=== PATIENT | male | born 1995 | race Caucasian/White ===

== ENCOUNTER 2017-11-19 15:17 | Emergency (ER) | payer OTHER, SELFPAY ==
[2017-11-19] VITALS (10 sets, daily range): BP systolic 126–157; BP diastolic 70–92; PULSE 64–99; RESP 12–20; TEMP 37.2; O2SAT 94–100; BMI 25.9
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
--- NOTE | 2017-11-19 15:36 | EKG12_ITS ---
Test Reason : AA Blood Pressure : / mmHG Vent. Rate : 074 BPM Atrial Rate : 074 BPM P-R Int : 116 ms QRS Dur : 092 ms QT Int : 374 ms P-R-T Axes : 043 066 065 degrees QTc Int : 415 ms Normal sinus rhythm Normal ECG Confirmed by PACO VALLES, EVAN ([id number]), editorial writer LUCIA BHAGAT ([id number]) on 11/23/2017 1:11:04 PM Referred By: ESTELLE Confirmed By:EVAN ANTONIO MD
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
[2017-11-19] MEDS: fentaNYL 100 MCG/2 ML Ampul 50 MCG IV ×2 (15:46→19:19)
[2017-11-19] MEDS: Ondansetron 4 MG/2 ML Vial IV (15:46)
[2017-11-19 16:06] LABS: Absolute Lymphocyte Count 1.46 X10^3/ul (0.83-4.51); Absolute Neutrophil Count 6.1 X10^3/uL (2.0-7.7); Basophil# 0.02 X10^3/uL; Basophil% 0.2 % (0-1); Eosinophil# 0.16 X10^3/uL; Eosinophils% 1.9 % (0-5); Hematocrit 45.5 % (40-54); Hemoglobin 14.5 g/dl (13.0-16.5); Lymphocyte # 1.46 X10^3/ul (4.0); Lymphocyte % 17.1 % (19-41); Mean Corp Hgb Conc 31.9 g/gl (32-36); Mean Corpuscular Hgb 29.2 pg (27.0-32.0); Mean Corpuscular Volume 91.5 fL (80-94); Mean Platelet Vol. 8.9 fl (6.2-12.0); Monocyte# 0.82 X10^3/uL; Monocyte% 9.6 % (0-10); Neutrophil # 6.07 X10^3/uL (2.7-7.7); Platelet Count 320 K/mm3 (150-450); RBC Distribution Width CV 13.6 % (11.6-14.6); RBC Distribution Width SD 44.7 fl (35.1-43.9); Red Blood Count 4.97 M/mm3 (4.6-6.2); White Blood Count 8.6 K/mm3 (4.4-11.0)
[2017-11-19 16:08] LABS: Prothrombin Time (Protime)PT. 12.6 SECONDS (11.7-14.9)
[2017-11-19 16:12] LABS: POSITIVE COUNT NO; POSITIVE DIFFERENTIAL NO; POSITIVE MORPHOLOGY NO
[2017-11-19 16:23] LABS: Alcohol, Blood (Medical)-Serum < 3.0 mg/dL
[2017-11-19 16:30] LABS: Anion Gap 8 (5-15); BUN 11 mg/dL (7-18); BUN/Creat Ratio 10.9 RATIO (10-20); Calcium,Total 9.1 mg/dL (8.5-10.1); Chloride 104 mmol/L (98-107); Creatinine, Serum 1.01 mg/dL (0.70-1.30); EST Glomerular Filtration Rate 99 mL/min (>60); Est Glom Filt Rate - Afr Amer 120 mL/min (>60); Estimated Creatinine Clearance 128.05 ml/min; Glucose 107 mg/dL (74-106); Potassium 3.4 mmol/L (3.5-5.1); Sodium Level 140 mmol/L (136-145)
--- NOTE | 2017-11-19 17:19 | ED.RN ---
rn called pt michael odell per pt request. she states she is in route to the hospital and will be here soon.
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
[2017-11-19 21:06] LABS: Amphetamine Urine VISTA POSITIVE (<1000 ng/mL); Barbiturate Urine VISTA NEGATIVE (< 200 ng/mL); Benzodiazepine Urine VISTA NEGATIVE (< 200 ng/mL); Cocaine Urine VISTA NEGATIVE (< 300 ng/mL); Ecstacy Urine VISTA NEGATIVE (< 500 ng/mL); Methadone Urine VISTA NEGATIVE (< 300 ng/mL); PCP Urine VISTA NEGATIVE (< 25 ng/mL); THC Urine VISTA POSITIVE (< 50 ng/mL); Vista UDS pH Range 6
--- NOTE | 2017-11-19 23:01 | ED.RN ---
[facility] called for transfer. left message at this time for call back
[2017-11-20 00:31] VITALS: BP 122/78; PULSE 100; PULSE 105; RESP 17; RESP 19; TEMP 37.1; O2SAT 100; O2SAT 99
[2017-11-20 01:02] VITALS: BP 137/80; PULSE 99; RESP 18; O2SAT 97
--- NOTE | 2017-11-20 01:18 | ED.RN ---
pt c-collar reapplied per dr. barrett verbal order. pt now alert and oriented and up and moving around without difficulty. pt ambulatory with no assistance from staff. pt awaiting transport to [facility].
[2017-11-20 01:58] VITALS: BP 118/68; PULSE 78; RESP 15; O2SAT 97
== END 2017-11-20 01:58 | disposition short-term general hospital (02) ==
PROVIDERS: Emergency Provider Emergency Medicine; Family Provider Pediatrics; PCP Pediatrics
DX: S30.1XXA Contusion of abdominal wall, initial encounter (principal); S09.90XA Unspecified injury of head, initial encounter; S01.81XA Laceration without foreign body of other part of head, initial encounter; S20.319A Abrasion of unspecified front wall of thorax, initial encounter; Z72.0 Tobacco use; V57.0XXA Driver of pick-up truck or van injured in collision with fixed or stationary object in nontraffic accident, initial encounter; Y93.I9 Activity, other involving external motion; Y92.410 Unspecified street and highway as the place of occurrence of the external cause; Y99.8 Other external cause status
CPT/HCPCS: 12011; 70450; 70486; 71045; 71260; 72125; 74177; 80048; 80307; 80320; 84484; 85025; 85610; 93005; 96374; 96375; 96376; 99285; J7030; Q9967; A4216; G0480; J2405

== ENCOUNTER 2018-04-05 13:05 | Emergency (ER) | payer OTHER, SELFPAY ==
[2018-04-05 13:06] VITALS: BP 128/76; PULSE 74; RESP 16; TEMP 36.9; O2SAT 98; BMI 25.7
--- NOTE | 2018-04-05 13:46 | CT_ITS ---
STUDY: CT ABDOMEN AND PELVIS WITHOUT CONTRAST REASON FOR EXAM: Male, 22 years old. Bilateral flank pain. RADIATION DOSAGE (If Supplied By Facility): CTDIvol = ( 8.70 ) mGy, DLP = ( 456.46 ) mGycm TECHNIQUE: Transaxial images were obtained from the dome of the diaphragm to the symphysis pubis without oral contrast, and without intravenous contrast. Sagittal and coronal images were reconstructed. Individualized dose optimization techniques were used for this CT. COMPARISON: Comparison is made with prior study dated November 19, 2017. FINDINGS: The visualized lung bases are unremarkable. The visualized portions of the heart are within normal limits. Normal liver. Normal gallbladder and extrahepatic biliary system. Normal spleen. Normal pancreas. Normal bilateral adrenal glands. Normal right kidney. Normal left kidney. Normal visualized stomach. Normal small intestine. Normal colon. The appendix is visualized and appears normal. Normal abdominal aorta. Normal inferior vena cava. Normal retroperitoneum. Normal urinary bladder. Normal abdominal wall. Normal osseous structures. CT/Abdomen/Pelvis without Cont IMPRESSION: Normal unenhanced CT of the abdomen and pelvis. Electronically Signed: Dino Huff MD at 14:58 EDT Tel [phone], Service support ,
[2018-04-05] MEDS: Ketorolac 30 MG/ML Syringe IV (14:21)
[2018-04-05] MEDS: 0.9% Normal Saline 1,000 ML 1000 ML IV (14:21)
[2018-04-05] MEDS: Ondansetron 4 MG/2 ML Vial IV (14:21)
[2018-04-05 14:47] LABS: Bacteria 0 SEEN /hpf (None Seen); Mucous, Urine 0 SEEN /hpf (<or=2+); Red Blood Cells-Urine 0 SEEN /hpf (0-5); White Blood Cells 0 SEEN /hpf (0-5)
[2018-04-05 14:50] LABS: Color, Urine Yellow (Yellow); Glucose, Dipstick Normal (Normal); Ketone-Dipstick Negative (Negative); Leukocyte Esterase-Dipstick Negative /ul (Negative); Nitrite-Dipstick Positive (Negative); Occult Blood-Urine Negative /ul (Negative); Protein-Dipstick Negative (Negative); Urine Bilirubin Dipstick Negative (Negative); Urine Clarity Sl. Cloudy (Clear); Urine Urobilinogen 1 mg/dl (Normal)
[2018-04-05 14:52] LABS: Absolute Lymphocyte Count 1.12 X10^3/ul (0.83-4.51); Absolute Neutrophil Count 6.3 X10^3/uL (2.0-7.7); Basophil# 0.02 X10^3/uL; Basophil% 0.3 % (0-1); Eosinophil# 0.08 X10^3/uL; Hematocrit 46.3 % (40-54); Hemoglobin 15.1 g/dl (13.0-16.5); Lymphocyte # 1.12 X10^3/ul (4.0); Lymphocyte % 14.4 % (19-41); Mean Corp Hgb Conc 32.6 g/gl (32-36); Mean Corpuscular Hgb 29.2 pg (27.0-32.0); Mean Corpuscular Volume 89.6 fL (80-94); Mean Platelet Vol. 9.4 fl (6.2-12.0); Monocyte# 0.24 X10^3/uL; Monocyte% 3.1 % (0-10); Neutrophil % 81.2 % (47-70); POSITIVE COUNT NO; POSITIVE DIFFERENTIAL NO; POSITIVE MORPHOLOGY NO; Platelet Count 260 K/mm3 (150-450); RBC Distribution Width CV 13.4 % (11.6-14.6); Red Blood Count 5.17 M/mm3 (4.6-6.2); White Blood Count 7.8 K/mm3 (4.4-11.0)
[2018-04-05 14:59] LABS: Squamous Epithelial Cells - UA 0-5 SEEN /hpf (0-5)
[2018-04-05 15:08] LABS: Anion Gap 7 (5-15); BUN 15 mg/dL (7-18); BUN/Creat Ratio 18.8 RATIO (10-20); Calcium,Total 8.6 mg/dL (8.5-10.1); Chloride 107 mmol/L (98-107); EST Glomerular Filtration Rate 130 mL/min (>60); Est Glom Filt Rate - Afr Amer 157 mL/min (>60); Estimated Creatinine Clearance 160.32 ml/min; Glucose 123 mg/dL (74-106); Sodium Level 141 mmol/L (136-145)
--- NOTE | 2018-04-05 15:22 | ED.DCSUM_ITS ---
- ER Visit Summary Date of Service: 04/05/18 Chief Complaint: Flank pain History of Present Illness: The patient is a 22 M with a couple day history of bilateral flank pain rating around anterior abdomen. He states he has had some mild diarrhea. He had similar symptoms a few weeks ago that improved after drinking water and cranberry juice. He denies dysuria or hematuria. He has had no fever. Physical Examination: Vital signs are unremarkable. Patient's lying supine in the bed. He is in no acute distress. Head neck examination is normal. Heart is regular rate and rhythm. Lung sounds are clear. Abdomen is soft with no focal tenderness on exam. Normal bowel sounds noted. Back examination reveals no reproducible tenderness. No skin rash or lesions are noted. Test Results: CBC and chemistry studies are unremarkable. Urinalysis is positive for nitrites but 0 white cells and [address] the flank is unremarkable. Emergency Department Course and Treatment: Urine will be sent for culture. Patient had IV fluids, Toradol, and Zofran. On repeat evaluation is resting comfortably. Test results were discussed with him. Because he does not have urinary symptoms but does have nitrite positive urine will be sent for the culture but he will not be treated at this time. Patient will be given naproxen for home, encouraged to increase fluids, and will be referred to establish a primary care physician for follow-up. Treatment Plan: [] Disposition: Discharge Impression: Flank pain, uncertain etiology This note was generated with [employer] dictation software. It may contain incorrect words, spelling, and punctuation that were not noted in review of the chart prior to signing ED Disposition - Plan for ED Patient: Chief Complaint: Back Referrals: Care Physician,No Primary [Primary Care Provider] -
--- NOTE | 2018-04-05 15:23 | ED.DEP ---
ED Disposition - Plan for ED Patient: Disposition: Home or Assisted Living Chief Complaint: Back Instructions: ED Flank Pain Uncertain Cause Prescriptions: Naproxen [Naprosyn] 500 mg PO BID PRN #20 tablet Referrals: Yan Delgado MD [STAFF PHYSICIAN] - As Needed
[2018-04-05 15:36] VITALS: BP 124/67; PULSE 59; RESP 15; O2SAT 98
== END 2018-04-05 15:37 | disposition home or self-care (01) ==
PROVIDERS: Emergency Provider Emergency Medicine
DX: R10.9 Unspecified abdominal pain (principal); Z72.0 Tobacco use
CPT/HCPCS: 74176; 80048; 81001; 85025; 96361; 96374; 96375; 99283; J7030; A4216; J2405

== ENCOUNTER 2021-04-21 15:38 | Emergency (ER) | payer OTHER, SELFPAY ==
[2021-04-21 15:40] VITALS: BP 140/79; PULSE 102; RESP 14; TEMP 36.1; O2SAT 96; BMI 33.5
--- NOTE | 2021-04-21 16:17 | ED.VIS.LOWEX ---
HPI History of Present Illness Chief Complaint: Lower Extremity Injury Narrative Narrative: 25-year-old male presenting with right lower extremity swelling. Patient states he accidentally kicked a metal coffee table with his wright and noted that its been swelling over the course of the week. He has not been using anti-inflammatories, elevating, icing, compressing. He is ambulatory. He notes that he has a lot more swelling in the right calf, ankle, foot. He denies injury to anything other than the mid tibia. Patient has no history of DVT/PE. Patient has no chest pain, palpitations, shortness of breath. PFSH PFSH Home Medications naproxen [Naprosyn] 500 mg PO BID PRN #30 tab 04/21/21 [Rx Last Taken Unknown] Allergy/AdvReac Type Severity Reaction Status Date / Time No Known Allergies Allergy Verified 04/21/21 15:42 Social History Smoking Status: Current every day smoker tobacco type: cigarettes ROS ROS ED Constitutional Constitutional ED: Denies chills or fever(s) Eyes Eyes: Denies blurry vision or diplopia ENT ENT ED: Denies rhinorrhea or sore throat Cardiovascular Cardiovascular: Denies chest pain, palpitations or racing heartbeat Respiratory/Chest Respiratory/Chest: Denies cough, dyspnea or dyspnea on exertion Gastrointestinal Gastrointestinal: Denies abdominal pain, nausea or vomiting Genitourinary Genitourinary ED: Denies dysuria or hematuria Musculoskeletal Musculoskeletal: Reports other Details: Right tibial pain and right lower extremity swelling. ; Denies myalgias Integumentary Denies rash Neurologic Neurologic: Denies headache(s) or paresthesias Psychiatric Psychiatric: Denies anxiety or depression EXAM Physical Exam Const Vital Signs: 04/21/21 15:40 Temperature 96.9 F L Temperature Source Temporal Pulse Rate 102 H Respiratory Rate 14 Blood Pressure 140/79 H Blood Pressure Mean 99 Pulse Ox 96 Oxygen Delivery Method Room Air Positive well nourished General Appearance ED: NAD HEENT normocephalic and atraumatic Eyes PERRL and EOMs intact bilaterally Resp normal respiratory effort and clear to auscultation bilaterally Cardio regular rate and regular rhythm Extremity Extremity Narrative: 2+ right lower extremity edema from the calf downward. 2+ pedal pulses. Sensation intact. Brisk cap refill to all 5 toes. No laceration or abrasion. There are no cellulitic changes. Neuro oriented x3 Sensorium / Orientation: alert Psych mental status grossly normal Skin no wounds Rashes: no rashes MDM MDM MDM Narrative Medical decision making narrative: Patient presenting for right lower extremity swelling after kicking a metal table about a week ago. On examination he has sensation and motor intact. His pulses are 2+ in the right lower extremity. I obtained images of the tib-fib on the right hand and on my interpretation these are negative for acute fracture. The radiologist does agree. Patient given prescription for Naprosyn. He is placed in an Clay wrap. Patient will be given an order for a follow-up ultrasound tomorrow as we do not have this in the ED today. I have low suspicion for DVT to not anticoagulant today. He is not having chest pain or shortness of breath either. Patient was discharged home in stable condition. Impression: 1. Right tibial contusion 2. Right lower extremity swelling Radiography Diagnostic Testing: Radiology Impression Tibia/Fibula X-Ray 04/21/21 16:50 IMPRESSION: Nonspecific soft tissue swelling. No fracture or destructive bony process. Electronically Signed: Thomas Asher MD (Brooks) at 17:10 EDT , Service support , Discharge Plan Triage Chief Complaint: Lower Extremity Injury ED Provider: Jack Story Dx/Rx/DC Orders Instructions: ED Contusion, Lower Extremity, ED Peripheral Edema, Unilateral Prescriptions: New naproxen [Naprosyn] 500 mg tablet 500 mg PO BID PRN (Reason: pain) Qty: 30 RF: 0 Primary Care Provider: Care Physician,No Primary Referrals: Quincy Michaud DO [STAFF PHYSICIAN] - As Needed Care Physician,No Primary [Primary Care Provider] - Disposition Disposition: Home, Self Care
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
[2021-04-21] MEDS: Naproxen 500 MG Tablet PO (17:06)
[2021-04-21 18:11] VITALS: BP 118/61; PULSE 80; RESP 14
== END 2021-04-21 18:12 | disposition home or self-care (01) ==
LOC: ED 17:18
PROVIDERS: Emergency Provider Student in an Organized Health Care Education/Training Program
DX: M79.89 Other specified soft tissue disorders (principal); S80.11XA Contusion of right lower leg, initial encounter; F17.210 Nicotine dependence, cigarettes, uncomplicated; W22.09XA Striking against other stationary object, initial encounter; Y93.89 Activity, other specified; Y92.89 Other specified places as the place of occurrence of the external cause; Y99.8 Other external cause status
CPT/HCPCS: 73590; 99283

== ENCOUNTER → 2021-04-22 15:37 | Outpatient (CLI) | payer OTHER, SELFPAY ==
[2021-04-21 15:40] VITALS: BMI 33.5
--- NOTE | 2021-04-22 15:40 | VDLE_ITS ---
Reason For Study: Swelling RIGHT GSV is normal. CFV is compressible, spontaneous, phasic, competent and demonstrates normal augmentation. FV is compressible, spontaneous, phasic, competent and demonstrates normal augmentation. POP V is compressible, spontaneous, phasic, competent and demonstrates normal augmentation. T/P Trunk is compressible. PTV is compressible. RT PerV is compressible. Procedure This is a venous duplex using B-mode, color flow and spectral Doppler. Exam performed in department. Pt done as next ED scan. No PCP to give prelim to. VL/Venous Duplex US, Unilateral Interpretation Summary Deep veins of the right lower extremity are patent and compressible segmentally . There is no evidence of right lower extremity deep vein thrombosis. Valvular competence cass ears intact within the proximal deep venous system on the right . The right great saphenous vein a ppears patent and compressible segmentally. Ordering Physician: Jack Story Performed By: Shauna Thomas RVT
== END ==
PROVIDERS: Referring Provider Student in an Organized Health Care Education/Training Program; Visit Provider Student in an Organized Health Care Education/Training Program
DX: M79.89 Other specified soft tissue disorders (principal)
CPT/HCPCS: 93971